=== PATIENT | female | born 1960 | race Caucasian/White ===

== ENCOUNTER 2017-05-05 11:02 | Outpatient (CLI) | payer OTHER | END 2017-05-05 11:03 | disposition home or self-care (01) | LOC: BICRAD 11:02 | PROVIDERS: ATTEND Physician Assistant | DX: M53.3 Sacrococcygeal disorders, not elsewhere classified (principal); M47.898 Other spondylosis, sacral and sacrococcygeal region | CPT/HCPCS: 72220 ==

== ENCOUNTER 2019-08-06 10:46 | Outpatient (CLI) | payer OTHER ==
--- NOTE | 2019-08-06 15:18 | PET ---
PET CT: 08/06/19 HISTORY: 59-year-old female with right hip pain and right hemipelvis soft tissue masses seen on MRI. TECHNIQUE: PET scan with CT attenuation correction is performed from the vertex through the feet following the intravenous administration of 11.3 millicuries of 15-fluorodeoxyglucose. COMPARISON: None. CORRELATION: MRI of the right hip dated 07/16/19 from [facility] in [place], [place]. FINDINGS: There is extensive hypermetabolic mediastinal lymphadenopathy with an SUV of 26. Hypermetabolic lymph nodes are seen in the abdomen with SUV of 26 in the aortocaval, 9.3 in the superior mesenteric and 1 2.5 in the right common iliac lymph nodes. The soft tissues masses noted in the right gluteal region on the MRI demonstrate hypermetabolic activ ity with a maximum SUV of 29 in the largest mass. There is focal increased uptake in the pericardium of the cardiac apex with an SUV of 4. Hypermetabolic bony lesions are seen in the right iliac bone with an SUV of 15.2, right fifth rib ant eriorly with SUV of 3.5 and right seventh rib anteriorly with an SUV of 9. There is a 15 mm left upper lobe ground glass/semisolid lung nodule without abnormal FDG localization (SVU 1.3). No hypermetabolic pulmonary nodules, liver, or adrenal lesions are seen. There is a 1.5 cm left adrenal nodule with CT attenuation value of less than 10 and no abnormal FDG l ocalization, consistent with a benign adenoma. The CT scan used for attenuation correction demonstrates no evidence of pleural effusions or ascites. IMPRESSION: 1. Findings are suspicious for extensive metastatic disease. 2. Indeterminate 15 mm left upper lobe nonhypermetabolic lung nodule. A follow-up CT scan should be performed in three months. POS: DIANA
== END 2019-08-06 10:47 | disposition home or self-care (01) ==
LOC: PET 10:46
PROVIDERS: ATTEND Physician Assistant
DX: M25.551 Pain in right hip (principal); R91.1 Solitary pulmonary nodule
CPT/HCPCS: 78816; A9552

== ENCOUNTER 2019-08-22 08:04 | Day surgery (SDC) | payer OTHER, SELFPAY ==
[2019-08-21 14:33] VITALS: BMI 32.2
[2019-08-22 08:25] LABS: PTT 43.9 sec (22.9-36.1); Prothrombin Time 13.6 sec (12.0-14.7)
[2019-08-22 08:30] LABS: Hemoglobin 10.9 g/dL (12.0-16.0); Mean Corpuscular HGB CONC 30.7 g/dL (32.0-36.0); Mean Corpuscular Volume 91.2 fL (78.0-98.0); Mean Platelet Volume 6.9 fL (7.4-10.4); Platelet Count 753 thou/uL (130-400); RBC Distribution Width 11.7 % (11.5-14.5); Red Blood Cell (RBC) Count 3.88 mill/uL (4.20-5.40); White Blood Cell (WBC) Count 33.7 thou/uL (4.8-10.8)
[2019-08-22 08:50] LABS: Band 21 % (5-11); Eosinophils 22 % (0-10); Lymphocytes 7 % (21-51); MDiff Complete? YES; Monocytes 10 % (0-10); Neutrophil 40 % (42-75); Platelet Morphology Comment Appears Increased; Polychromasia SLIGHT = 2-3 cells (100X) (0-2/hpf); Reflex for Review?? YES; Vacuoles MARKED
[2019-08-22 09:37] VITALS: BP 129/87; TEMP 97.6
--- NOTE | 2019-08-22 10:46 | CT ---
Exam: CT guided soft tissue biopsy HISTORY: Multiple masses. Uncertain primary tumor COMPARISON: None Correlation: [facility] 08/06/2019 Conscious sedation: 50 mcg of fentanyl intravenously and 1 mg of Versed intravenously FINDINGS: Successful CT-guided biopsy. Total of 2 18-gauge core biopsy samples were obtained. Lesiona l tissue is present TECHNIQUE: Consent obtained to perform a CT-guided biopsy of a soft tissue mass involving the right g luteal muscles. Patient was placed in a prone position on the CT gantry. Lesion was identified. Skin was prepped and draped in sterile fashion. 1% lidocaine was used for local anesthesia. Under CT guidance, a 17-gauge metallic trocar was advanced into the lesion. Through the trocar, total of 2 18-gauge core biopsy samples were obtained. Lesional tissue is present. Patient tolerated the procedu re well. No immediate or postprocedure complications. Hemostasis was achieved with manual pressure. IMPRESSION: Technically successful CT-guided biopsy. Final pathologic diagnosis us pending
== END 2019-08-22 12:10 | disposition home or self-care (01) ==
LOC: CT 08:04
PROVIDERS: ATTEND Internal Medicine Hematology & Oncology
PROC: 0KBN3ZX Excision of Right Hip Muscle, Percutaneous Approach, Diagnostic (ICD-10-PCS; principal; 2019-08-22)
DX: C79.89 Secondary malignant neoplasm of other specified sites (principal); C34.90 Malignant neoplasm of unspecified part of unspecified bronchus or lung; C79.51 Secondary malignant neoplasm of bone; F41.9 Anxiety disorder, unspecified; E78.5 Hyperlipidemia, unspecified; G89.29 Other chronic pain; M54.9 Dorsalgia, unspecified; M25.559 Pain in unspecified hip; Z96.641 Presence of right artificial hip joint; Z87.891 Personal history of nicotine dependence; Z79.891 Long term (current) use of opiate analgesic; Z79.899 Other long term (current) drug therapy; Z88.0 Allergy status to penicillin
CPT/HCPCS: 36415; 49180; 77012; 85025; 85060; 85610; 85730; 88305; 88333; 88341; 88342

== ENCOUNTER 2019-10-23 14:36 | Outpatient (CLI) | payer OTHER ==
--- NOTE | 2019-10-23 15:22 | RAD ---
PA AND LATERAL VIEWS CHEST: HISTORY: Pericardial effusion. COMPARISON: 09/25/2019. FINDINGS: There has been interval removal of the left-sided central venous catheter. The heart size is normal. The aorta is tortuous. The lungs are expanded without lobar consolidation, pneumothoraces, or pleu ral effusions. There are mild degenerative changes in the spine. IMPRESSION: No acute process. POS: OFF
== END 2019-10-23 14:37 | disposition home or self-care (01) ==
LOC: RAD 14:36
PROVIDERS: ATTEND Thoracic Surgery (Cardiothoracic Vascular Surgery)
DX: I31.3 Pericardial effusion (noninflammatory) (principal)
CPT/HCPCS: 71046

== ENCOUNTER 2019-10-25 09:42 | Outpatient (CLI) | payer OTHER ==
--- NOTE | 2019-10-25 11:47 | MRI ---
Exam: Brain MRI with and without contrast HISTORY: Known metastatic disease. Primary lung cancer with intracranial metastases. COMPARISON: 09/24/2019 FINDINGS: Gradient echo sequence: Small foci of hemosiderin deposition noted in the metastatic lesion in the po sterior right gunderson radiata/centrum [place] as well as the metastatic lesion in the left occipital lobe. Presence of hemosiderin likely representing combination of posttreatment change as we ll as spontaneous hemorrhage in a metastatic deposit. Calvarium: Appropriate T1 marrow signal intensity Midline brain parenchyma: Unremarkable Cerebrum:Redemonstration of T2 and FLAIR hyperintensity centered in the posterior right gunderson radiat a/centrum [place], left occipital lobe. There is progression of T2 and FLAIR hyperintensity involving the left frontal lobe as well as the right deep deep white matter lesion. All 3 foci have i ntrinsic T1 hyperintensity suggesting component of hemorrhage. There is associated edema in the intraparenchymal lesions. Ventricles: No evidence of hydrocephalus. Sinuses and mastoid air cells: Adequate aeration Diffusion: There is associated restricted diffusion with regards to the lesions in the left occipital lobe, left frontal lobe and right white matter. Postcontrast images:Redemonstration of 3 discrete enhancing lesions in the cerebrum. Enhancing lesion in the left occipital lobe currently measures 1.6 x 1.4 cm, previous measuring 1.7 x 1.5 cm. Enhancing focus in the right deep campa matter structures currently measuring 1.4 x 1.5 cm, previous m easuring 1.9 x 1.7 cm. Enhancing focus in the left frontal lobe measuring 1.2 x 1.0 cm, previous measuring 1.0 x 1.2 cm. No new areas of intra-axial enhancement. IMPRESSION: 1. Redemonstration of 3 separate intraparenchymal metastatic deposits without appreciable change allison ge. There is been a slight decrease in the overall size of the lesion involving the right deep campa matter structures. The degree of edema peripheral to this lesion has progressed. No significant midli ne shift.
== END 2019-10-25 09:43 | disposition home or self-care (01) ==
LOC: SCSMRI 09:42
PROVIDERS: ATTEND Internal Medicine Hematology & Oncology
DX: C34.90 Malignant neoplasm of unspecified part of unspecified bronchus or lung (principal); C79.51 Secondary malignant neoplasm of bone; C79.31 Secondary malignant neoplasm of brain; C78.1 Secondary malignant neoplasm of mediastinum; C77.2 Secondary and unspecified malignant neoplasm of intra-abdominal lymph nodes; C79.89 Secondary malignant neoplasm of other specified sites; R60.0 Localized edema
CPT/HCPCS: 70553

== ENCOUNTER 2019-11-07 13:17 | Outpatient (CLI) | payer OTHER | END 2019-11-07 13:18 | disposition home or self-care (01) | LOC: ULT 13:17 | PROVIDERS: ATTEND Internal Medicine Cardiovascular Disease | DX: I31.3 Pericardial effusion (noninflammatory) (principal); I80.8 Phlebitis and thrombophlebitis of other sites | CPT/HCPCS: 93306 ==

== ENCOUNTER 2019-11-25 12:39 | Day surgery (SDC) | payer OTHER ==
[~2019-11-25 12:39] MED LIST: Pembrolizumab 200 MG in Sodium Chloride 0.9% 250 ML 250 ML IV SCH
[2019-11-25] MEDS ORDERED: Sodium Chloride 0.9% 20 ML ONE (13:34)
[2019-11-25 14:22] VITALS: BP 147/70; TEMP 97.6
== END 2019-11-25 15:24 | disposition home or self-care (01) ==
LOC: ONC/OP 12:39
PROVIDERS: ATTEND Internal Medicine Hematology & Oncology
DX: Z51.12 Encounter for antineoplastic immunotherapy (principal); C34.90 Malignant neoplasm of unspecified part of unspecified bronchus or lung; C79.51 Secondary malignant neoplasm of bone; Z88.8 Allergy status to other drugs, medicaments and biological substances
CPT/HCPCS: 96413

== ENCOUNTER → 2019-12-16 | Day surgery (SDC) | payer OTHER | LOC: ONC/OP 14:37 | PROVIDERS: ATTEND Internal Medicine Hematology & Oncology | DX: Z51.12 Encounter for antineoplastic immunotherapy (principal); C34.90 Malignant neoplasm of unspecified part of unspecified bronchus or lung; C79.51 Secondary malignant neoplasm of bone; Z88.0 Allergy status to penicillin | CPT/HCPCS: 96413 ==

== ENCOUNTER 2019-12-25 06:48 | Outpatient (CLI) | payer OTHER ==
[2019-12-25 14:34] LABS: Anion Gap 15 mmol/L (10-20); BUN (Urea Nitrogen) 16 mg/dL (9.8-20.1); Calc. Creatinine Clearance 0 mL/min (70-130); Carbon Dioxide 28 mmol/L (23-31); Chloride 100 mmol/L (98-107); Estimated GFR-MDRD 77; Glucose 86 mg/dL (80-115); Potassium 5.2 mmol/L (3.5-5.1); Sodium 138 mmol/L (136-145)
[2019-12-26 14:43] LABS: SARS-CoV-2 MS2 Positive; SARS-CoV-2 by NAA DETECTED (NotDetected)
[2019-12-26 14:44] LABS: SARS-CoV-2 N Gene Positive; SARS-CoV-2 S Gene Positive; SARS-CoV-2 orf1ab Positive
== END 2019-12-25 06:49 | disposition home or self-care (01) ==
LOC: LABBT 06:48
PROVIDERS: ATTEND Surgery
DX: U07.1 COVID-19 (principal); Z01.812 Encounter for preprocedural laboratory examination; C34.90 Malignant neoplasm of unspecified part of unspecified bronchus or lung
CPT/HCPCS: 80048; 87635; U0003

== ENCOUNTER 2019-12-26 12:17 | Outpatient (CLI) | payer OTHER ==
--- NOTE | 2019-12-26 14:19 | MRI ---
MRI BRAIN WITH AND WITHOUT CONTRAST: DATE: 12/26/2019 HISTORY: 59-year-old female follow-up brain metastasis from right lung cancer. COMPARISON: 10/25/2019 TECHNIQUE: Multiplanar, multisequence MRI of the brain performed pre- and post-IV injection of gadolinium based contrast agent. FINDINGS: The round metastatic mass in the right parietal deep white matter previously measuring 1.7 x 1.7 x 1. 8 cm (reported as 1.4 x 1.5 cm) has decreased in size and currently measures 1.1 x 1.3 x 1.2 cm. The left occipital pole round enhancing metastatic mass previously measuring approximately 1.7 x 1.4 x 1.6 cm, currently measurers 0.9 x 0.8 x 0.8 cm. The left frontal lobe enhancing intra-axial mass previously measuring 1.2 x 1 x 1.1 cm, currently doug sures 0.6 x 0.8 x 0.6 cm. The vasogenic edema surrounding all of them have significantly decreased. There is a small thin halo around the right parietal deep white matter mass, but no vasogenic edema i s identified surrounding the other 2 lesions. There is hemosiderin stain involving the right parietal and left occipital masses The right parietal and left occipital lesions have central components with restricted diffusion sugge sting high nucleus to cytoplasm ratios as seen in small round blue cell tumors such as small cell carcinoma. There are no new metastatic lesions. Ventricles are normal in size and configuration. No mass effect, midline shift, or extra-axial fluid collection. IMPRESSION: Evidence for response to chemotherapy: interval shrinkage, and interval reduction of surrounding vaso genic edema, involving the 3 cerebral metastatic lesions.
--- NOTE | 2019-12-26 15:37 | CT ---
CT of the chest, abdomen, and pelvis: 12/26/2019 COMPARISON: Chest CT 08/22/2019, CT of abdomen and pelvis 09/16/2019, and PET scan 08/06/2019 HISTORY: Lung cancer with osseous and intracranial metastatic disease TECHNIQUE: Axial CT imaging at 5 mm intervals from the thoracic inlet through the pubic symphysis wit h IV and oral contrast. Coronal and sagittal reformatted imaging obtained FINDINGS: No lymphadenopathy in the axillary regions. There is a mass anterior to the trachea at the axial level of the thoracic inlet measuring 2 cm in AP dimension which abuts the inferior aspect of the thyroid gland may represent a thyroid nodule or a abnormal metastatic lymph node. There is lymphadenopathy within the mediastinum including a 1.7 cm ly mph node anterior to the superior vena cava, new when compared to the prior PET scan. There is necrotic adenopathy anterior to the ruben measuring 2.1 cm in AP dimension, increased in size from [facility] 09/18/2019 CT and increased from the prior PET scan at which time it measured 1.2 cm. Subcarinal tatiana mass measures 1.9 cm in AP dimension, similar when compared to prior chest CT on 09/18/2019 and enlarged from prior PET at which time it measured 1.2 cm. Enlarged low-density necrotic lymph nodes are seen within the prevascular space measuring up to 9 mm, measuring 8 mm on prior PET. Stable small AP window lymph nodes are noted. No hilar adenopathy is apparent on either side. There is no pneumothorax seen on either side. There is a nodule in the left upper lobe measuring 9 mm on axial image 12, slightly larger than on th e prior examination, measuring 7 mm on prior PET scan. There is an irregular masslike opacity within the left upper lobe posteriorly on image 20 measuring 1.8 cm in transverse dimension, not sign ificantly changed when compared to the prior PET scan. Stable linear density in the inferior medial right middle lobe suggests scar and/or volume loss. No discrete new pulmonary nodules are noted on ei ther side. Review of the osseous structures of the chest demonstrate a punctate sclerotic focus within the midpo rtion of the sternum, not discretely visualized on the prior PET scan. No discrete rib lesion noted on the left. There is a sclerotic focus involving the anterior aspect of the left fifth rib and the l ateral aspect of the left seventh rib with associated healed fractures which are new when compared to the prior PET scan and are suspicious for healed pathologic fractures on the basis of osseous meta static disease. No free intraperitoneal air or fluid is seen. Liver, gallbladder, spleen, pancreas, and kidneys demonstrate no acute findings. There is an adrenal mass on the left measuring 2.5 cm, stable when compared to the prior PET scan. There is a stable small adrenal nodule on the right measuring 1.1 cm, probably stable when compared to prior imaging. There is a hip arthroplasty on the right. No evidence for bowel inflammatory change or bowel obstruction. The vascular structures of the abdomen/pelvis demonstrate scattered areas of atherosclerotic calcific ation involving the abdominal aorta and its branches. No enlarged retroperitoneal or pelvic lymph nodes are seen. There is a low-density enlarged node on axial image 82 measuring 1.2 cm along the course of the commo n iliac vasculature on the right, similar when compared to the 08/06/2019 PET scan. There are 2 enlarged lymph nodes posterior to the external iliac vasculature on the right measuring up to 1.4 cm in short axis dimension, also similar when compared to prior PET scan. Review of the osseous structures of the abdomen/pelvis demonstrate a sclerotic lesion within the left femoral head suggesting stable osseous metastatic disease. There is also a subtle sclerotic focus within the ischium on the left which actually appears more conspicuous than on prior PET scan. No discrete sacral lesion is seen. Enlarged lymph nodes are seen anterior to the gluteal musculature on axial image 98 measuring up to 1 cm, similar when compared to prior imaging. There is a vague low-density mass within the gluteal musculature laterally on the left measuring up to 2.3 cm suggesti ng possible intramuscular metastatic lesion. Subtle sclerotic focus noted within the anterior aspect of the right iliac wing, more conspicuous gregoria n on the prior examination, suspicious for possible osseous metastatic focus. Punctate sclerotic focus within the posterior aspect of the iliac bone on the left on image 84 which appears new as well . IMPRESSION: Worsening metastatic adenopathy within the mediastinum. Findings suggesting slight interv al worsening of metastatic osseous lesions as detailed above. Stable pulmonary parenchymal lesions within the left upper lobe. Relatively stable metastatic adenopathy within the pelvis. Gluteal abnormality suggesting a combinati on of intramuscular lesions and adjacent lymph nodes, presumably on the basis of metastatic disease. Intramuscular abscess in the proper clinical setting cannot be excluded.
== END 2019-12-26 12:18 | disposition home or self-care (01) ==
LOC: SCSMRI 12:17
PROVIDERS: ATTEND Internal Medicine Hematology & Oncology
DX: C34.90 Malignant neoplasm of unspecified part of unspecified bronchus or lung (principal); C79.51 Secondary malignant neoplasm of bone; C79.31 Secondary malignant neoplasm of brain; C79.89 Secondary malignant neoplasm of other specified sites; J98.4 Other disorders of lung; M60.08 Infective myositis, other site; R60.0 Localized edema
CPT/HCPCS: 70553; 71260; 74177

== ENCOUNTER 2020-01-13 13:00 | Day surgery (SDC) | payer OTHER ==
[~2020-01-13 13:00] MED LIST changes: -Pembrolizumab 200 MG in Sodium Chloride 0.9% 250 ML 250 ML IV SCH; +Pembrolizumab 200 MG in Sodium Chloride 0.9% 250 ML 250 ML IVPB SCH; +Zoledronic Acid 4 MG in Sodium Chloride 0.9% 100 ML IVPB SCH
== END 2020-01-13 16:10 | disposition home or self-care (01) ==
LOC: ONC/OP 13:00
PROVIDERS: ATTEND Internal Medicine Hematology & Oncology
DX: Z51.12 Encounter for antineoplastic immunotherapy (principal); C79.51 Secondary malignant neoplasm of bone; C34.90 Malignant neoplasm of unspecified part of unspecified bronchus or lung; Z88.0 Allergy status to penicillin
CPT/HCPCS: 96367; 96413; J3489; J3490

== ENCOUNTER 2020-01-27 06:47 | Outpatient (CLI) | payer OTHER ==
[2020-01-27 16:37] LABS: Hemoglobin 12.4 g/dL (12.0-16.0); Mean Corpuscular HGB CONC 30.2 G/DL (32.0-36.0); Mean Corpuscular Hemoglobin 28.2 PG (27.0-33.0); Mean Corpuscular Volume 93.2 fl (80.0-100.0); Mean Platelet Volume 9.9 fl (7.4-10.4); Platelet Count 411 10x3/uL (130-400); RBC Distribution Width 17.2 % (11.5-14.5); White Blood Cell (WBC) Count 6.7 10x3/uL (4.5-11.0)
[2020-01-27 16:52] LABS: Anion Gap 14 mmol/L (10-20); BUN (Urea Nitrogen) 13 mg/dL (9.8-20.1); Calc. Creatinine Clearance 0 mL/min (70-130); Calcium 9.1 mg/dL (7.8-10.44); Carbon Dioxide 30 mmol/L (23-31); Chloride 101 mmol/L (98-107); Glucose 77 mg/dL (80-115); Potassium 4.9 mmol/L (3.5-5.1); Sodium 140 mmol/L (136-145)
[2020-01-28 02:12] LABS: SARS-CoV-2 MS2 Positive; SARS-CoV-2 N Gene Negative; SARS-CoV-2 S Gene Negative; SARS-CoV-2 by NAA Not Detected (NotDetected); SARS-CoV-2 orf1ab Negative
== END 2020-01-27 06:48 | disposition home or self-care (01) ==
LOC: LABBT 06:47
PROVIDERS: ATTEND Surgery
DX: Z01.812 Encounter for preprocedural laboratory examination (principal); Z20.828 Contact with and (suspected) exposure to other viral communicable diseases; C34.90 Malignant neoplasm of unspecified part of unspecified bronchus or lung
CPT/HCPCS: 80048; 85027; 87635; U0003

== ENCOUNTER 2020-01-30 11:05 | Day surgery (SDC) | payer OTHER ==
[2020-01-29 09:34] VITALS: BMI 31.8
[2020-01-30] MEDS ORDERED: Lidocaine 1% w/Epinephrine 1:100K 20 ML VIAL ONE (12:07)
[2020-01-30] MEDS ORDERED: Bupivacaine 0.25% HCL 30 ML VIAL ONE (12:07)
[2020-01-30] MEDS ORDERED: Fentanyl 100 MCG/2 ML VIAL ONE (12:11)
[2020-01-30] MEDS ORDERED: PROPOFOL 40 ML ONE (12:11)
[2020-01-30] MEDS ORDERED: Levofloxacin 500 mg/D5W 100 ml Premix Bag ONE (12:21)
--- NOTE | 2020-01-30 14:30 | RAD ---
CHEST 1 VIEW: History Post MediPort. FINDINGS: Heart size is enlarged. Atherosclerotic changes of the aorta. Right-sided MediPort catheter is seen . Catheter tip overlies the superior vena cava. No pneumothorax identified. IMPRESSION: Post MediPort placement. No signs of pneumothorax. POS: IMER
--- NOTE | 2020-01-31 14:54 | OP ---
DATE OF PROCEDURE: 01/30/2020 PREOPERATIVE DIAGNOSIS: Lung cancer. POSTOPERATIVE DIAGNOSIS: Lung cancer. PROCEDURE PERFORMED: Tunneled central line with subcutaneous port (MediPort, CT injectable). ANESTHESIA: TIVA, local. ESTIMATED BLOOD LOSS: Minimal. COMPLICATIONS: None. SPECIMEN: None. FINDINGS: The tip of the catheter was at the atriocaval junction. DESCRIPTION OF PROCEDURE: The patient was taken to the operating room and laid supine on the operating room table. After sedation was obtained, bilateral neck and chest were prepped and draped in a sterile fashion. Local anesthetic was infiltrated over the right internal jugular vein. Internal jugular vein was cannulated using a 22-gauge Finder needle followed by a Seldinger needle. Wire was passed into the superior vena cava under fluoro guidance. A small robbi was made at the wire entrance site. A separate 3 cm incision was made in the right upper chest. Subcutaneous pocket was made below the lower incision. Tubing for the MediPort tunneled from the inferior to the superior incision and suture sheath was placed over the wire into the superior vena cava under fluoro guidance. The dilator and wire were removed. The end of the catheter threaded into the sheath. The sheath was peeled away. The tip of the catheter was at the atriocaval junction. MediPort tubing was cut to fit the MediPort at the lower incision, connected to the MediPort. The MediPort sewn to the chest wall in the subcutaneous pocket using Prolene. MediPort flushes and draws blood without difficulties, flushed with a heparin flush. The wound was irrigated and closing using 3-0 Vicryl, 4-0 Monocryl, and Dermabond. The patient was sent to Recovery in stable condition. All instrument counts, needle counts, and lap counts were correct. Job ID: [id number]
== END 2020-01-30 14:40 | disposition home or self-care (01) ==
LOC: SDC 11:05
PROVIDERS: ATTEND Surgery
PROC: 0JH63WZ Insertion of Totally Implantable Vascular Access Device into Chest Subcutaneous Tissue and Fascia, Percutaneous Approach (ICD-10-PCS; principal; 2020-01-30)
PROC: 02HV33Z Insertion of Infusion Device into Superior Vena Cava, Percutaneous Approach (ICD-10-PCS; principal; 2020-01-30)
DX: C34.90 Malignant neoplasm of unspecified part of unspecified bronchus or lung (principal); C79.9 Secondary malignant neoplasm of unspecified site; M19.90 Unspecified osteoarthritis, unspecified site; F41.9 Anxiety disorder, unspecified; Z87.891 Personal history of nicotine dependence; Z79.899 Other long term (current) drug therapy; Z88.0 Allergy status to penicillin; Z88.8 Allergy status to other drugs, medicaments and biological substances
CPT/HCPCS: 71045; C1788; J0690; J1642; J1956; J2704; J3010; S0020

== ENCOUNTER 2020-02-03 13:27 | Day surgery (SDC) | payer OTHER ==
[~2020-02-03 13:27] MED LIST changes: +Pembrolizumab 200 MG in Sodium Chloride 0.9% 250 ML 250 ML IV SCH; -Pembrolizumab 200 MG in Sodium Chloride 0.9% 250 ML 250 ML IVPB SCH; -Zoledronic Acid 4 MG in Sodium Chloride 0.9% 100 ML IVPB SCH
[2020-02-03 13:49] VITALS: BP 162/75; TEMP 98.5
[2020-02-03] MEDS ORDERED: Sodium Chloride 0.9% 20 ML ONE (14:03)
== END 2020-02-03 14:42 | disposition home or self-care (01) ==
LOC: ONC/OP 13:27
PROVIDERS: ATTEND Internal Medicine Hematology & Oncology
DX: Z51.12 Encounter for antineoplastic immunotherapy (principal); C34.90 Malignant neoplasm of unspecified part of unspecified bronchus or lung; C79.51 Secondary malignant neoplasm of bone; Z88.0 Allergy status to penicillin; Z88.8 Allergy status to other drugs, medicaments and biological substances
CPT/HCPCS: 96413; J1642

== ENCOUNTER 2020-02-24 13:28 | Day surgery (SDC) | payer OTHER ==
[2020-02-24 13:39] VITALS: BP 146/81; TEMP 98.2
[2020-02-24] MEDS ORDERED: Sodium Chloride 0.9% 20 ML ONE (13:47)
== END 2020-02-24 17:24 | disposition home or self-care (01) ==
LOC: ONC/OP 13:28
PROVIDERS: ATTEND Internal Medicine Hematology & Oncology
DX: Z51.12 Encounter for antineoplastic immunotherapy (principal); C34.90 Malignant neoplasm of unspecified part of unspecified bronchus or lung; C79.51 Secondary malignant neoplasm of bone; Z88.0 Allergy status to penicillin; Z88.8 Allergy status to other drugs, medicaments and biological substances
CPT/HCPCS: 96413; J1642

== ENCOUNTER 2020-03-18 14:39 | Day surgery (SDC) | payer OTHER ==
[2020-03-18 15:08] VITALS: BP 136/65; TEMP 98.6
== END 2020-03-18 16:14 | disposition home or self-care (01) ==
LOC: ONC/OP 14:39
PROVIDERS: ATTEND Internal Medicine Hematology & Oncology
DX: Z51.12 Encounter for antineoplastic immunotherapy (principal); C34.90 Malignant neoplasm of unspecified part of unspecified bronchus or lung; C79.51 Secondary malignant neoplasm of bone; Z88.0 Allergy status to penicillin; Z88.8 Allergy status to other drugs, medicaments and biological substances
CPT/HCPCS: 96413

== ENCOUNTER 2020-04-27 12:27 | Day surgery (SDC) | payer OTHER ==
[~2020-04-27 12:27] MED LIST changes: +Zoledronic Acid 4 MG in Sodium Chloride 0.9% 100 ML IVPB SCH
[2020-04-27 12:52] VITALS: BP 137/81; TEMP 98.4
== END 2020-04-27 16:35 | disposition home or self-care (01) ==
LOC: ONC/OP 12:27
PROVIDERS: ATTEND Internal Medicine Hematology & Oncology
DX: Z51.12 Encounter for antineoplastic immunotherapy (principal); C34.90 Malignant neoplasm of unspecified part of unspecified bronchus or lung; C79.51 Secondary malignant neoplasm of bone
CPT/HCPCS: 96367; 96413; J3489; J3490; J7050; J9271

== ENCOUNTER 2020-05-19 13:40 | Day surgery (SDC) | payer OTHER, SELFPAY ==
[2020-05-19] MEDS ORDERED: Sodium Chloride 0.9% 20 ML ONE (13:43)
[2020-05-19 14:12] VITALS: BP 146/71
[2020-05-19] MEDS ORDERED: Pembrolizumab 200 MG in Sodium Chloride 0.9% 250 ML 250 ML IV SCH (14:15)
== END 2020-05-19 15:02 | disposition home or self-care (01) ==
LOC: ONC/OP 13:40
PROVIDERS: ATTEND Internal Medicine Hematology & Oncology
DX: Z51.12 Encounter for antineoplastic immunotherapy (principal); C34.90 Malignant neoplasm of unspecified part of unspecified bronchus or lung; C79.51 Secondary malignant neoplasm of bone; Z88.0 Allergy status to penicillin
CPT/HCPCS: 96413; J1642; J7050; J9271

== ENCOUNTER 2020-05-22 11:48 | Outpatient (CLI) | payer OTHER, SELFPAY ==
[2020-05-22 16:21] LABS: Anion Gap 14 mmol/L (10-20); BUN (Urea Nitrogen) 15 mg/dL (9.8-20.1); Calc. Creatinine Clearance 0 mL/min (70-130); Calcium 8.5 mg/dL (7.8-10.44); Carbon Dioxide 29 mmol/L (23-31); Chloride 102 mmol/L (98-107); Glucose 95 mg/dL (80-115); Sodium 140 mmol/L (136-145)
[2020-05-22 16:46] LABS: #Basophils 0.1 10x3/uL (0.0-0.2); #Eosinphils 0.4 10x3/uL (0.0-0.5); #Monocytes 0.8 10x3/uL (0.0-1.1); #Neutrophils 5.3 10x3/uL (1.5-8.4); %Basophils 0.8 % (0.0-2.0); %Eosinophils 4.4 % (0.0-6.0); %Lymphocytes 17.6 % (18.0-47.0); %Monocytes 9.8 % (0.0-10.0); Hemoglobin 13.4 g/dL (12.0-15.5); Mean Corpuscular HGB CONC 30.1 g/dL (32.0-36.0); Mean Corpuscular Hemoglobin 29.3 pg (27.0-33.0); Mean Corpuscular Volume 97.2 fl (81.6-98.3); Mean Platelet Volume 10.5 fl (7.4-10.4); Platelet Count 367 10x3/uL (150-450); RBC Distribution Width 13.7 % (11.5-14.5); Red Blood Cell (RBC) Count 4.58 10x6/uL (3.90-5.03)
[2020-05-23 01:24] LABS: SARS-CoV-2 PCR by NAA Not Detected (NotDetected)
== END 2020-05-22 11:49 | disposition home or self-care (01) ==
LOC: LABBT 11:48
PROVIDERS: ATTEND Specialist
DX: Z01.818 Encounter for other preprocedural examination (principal); C50.919 Malignant neoplasm of unspecified site of unspecified female breast; R10.84 Generalized abdominal pain; Z98.890 Other specified postprocedural states; K43.2 Incisional hernia without obstruction or gangrene; Z20.822 Contact with and (suspected) exposure to COVID-19
CPT/HCPCS: 80048; 85025; 87635; U0003; U0005

== ENCOUNTER 2020-05-27 11:52 | Day surgery (SDC) | payer OTHER, SELFPAY ==
[2020-05-25 15:40] VITALS: BMI 34.5
[2020-05-27] MEDS ORDERED: Ketorolac Tromethamine 30 MG/ML VIAL ONE (12:07)
[2020-05-27] MEDS ORDERED: Levofloxacin 500 mg/D5W 100 ml Premix Bag ONE (12:07)
[2020-05-27] MEDS ORDERED: Acetaminophen 500 MG TAB ONE (12:07)
[2020-05-27] MEDS ORDERED: Gabapentin 300 MG CAP ONE (12:07)
[2020-05-27] MEDS ORDERED: Scopolamine 1.5 mg/72 hour Patch ONE ×2 (13:22→17:27)
[2020-05-27] MEDS ORDERED: Bupivacaine 0.25% HCL 30 ML VIAL ONE (16:43)
[2020-05-27] MEDS ORDERED: Lidocaine 1% w/Epinephrine 1:100K 20 ML VIAL ONE (16:43)
[2020-05-27] MEDS ORDERED: Fentanyl 100 MCG/2 ML VIAL ONE ×4 (17:05→20:52)
[2020-05-27] MEDS ORDERED: Ondansetron PF 4 MG/2 ML Vial ONE ×2 (17:18→20:52)
[2020-05-27] MEDS ORDERED: Labetalol HCl 100 MG/20 ML VIAL ONE (17:18)
[2020-05-27] MEDS ORDERED: Lidocaine 1% PF 5 ML VIAL ONE (17:18)
[2020-05-27] MEDS ORDERED: Rocuronium Bromide 10 MG/ML (10ML VIAL) ONE (17:18)
[2020-05-27] MEDS ORDERED: Dexamethasone 20 MG/5 ML VIAL ONE (17:18)
[2020-05-27] MEDS ORDERED: PROPOFOL 200 MG/20 ML VIAL ONE (17:18)
[2020-05-27] MEDS ORDERED: Glycopyrrolate 0.2 MG/ML 5 ML SYRINGE ONE (17:18)
[2020-05-27] MEDS ORDERED: SUGAMMADEX SODIUM 200 MG/2 ML VIAL ONE (19:44)
[2020-05-27] MEDS ORDERED: HYDROcodone/Acetaminophen 5/325 mg Tablet ONE (20:38)
== END 2020-05-27 21:22 | disposition home or self-care (01) ==
LOC: SDC 11:52
PROVIDERS: ATTEND Specialist
PROC: 0WUF4JZ Supplement Abdominal Wall with Synthetic Substitute, Percutaneous Endoscopic Approach (ICD-10-PCS; principal; 2020-05-27)
DX: K43.2 Incisional hernia without obstruction or gangrene (principal); M19.90 Unspecified osteoarthritis, unspecified site; E78.00 Pure hypercholesterolemia, unspecified; G89.29 Other chronic pain; I10 Essential (primary) hypertension; F41.9 Anxiety disorder, unspecified; C50.919 Malignant neoplasm of unspecified site of unspecified female breast; Z79.899 Other long term (current) drug therapy; Z87.891 Personal history of nicotine dependence; Z88.0 Allergy status to penicillin; Z88.8 Allergy status to other drugs, medicaments and biological substances
CPT/HCPCS: C1781; J1100; J1885; J1956; J2405; J2704; J3010; S0020

== ENCOUNTER 2020-06-09 13:10 | Day surgery (SDC) | payer OTHER ==
[~2020-06-09 13:10] MED LIST changes: -Zoledronic Acid 4 MG in Sodium Chloride 0.9% 100 ML IVPB SCH
[2020-06-09 13:36] VITALS: BP 161/70; TEMP 98.8
== END 2020-06-09 15:03 | disposition home or self-care (01) ==
LOC: ONC/OP 13:10
PROVIDERS: ATTEND Internal Medicine Hematology & Oncology
DX: Z51.12 Encounter for antineoplastic immunotherapy (principal); C34.90 Malignant neoplasm of unspecified part of unspecified bronchus or lung; C79.51 Secondary malignant neoplasm of bone; Z88.0 Allergy status to penicillin; Z88.8 Allergy status to other drugs, medicaments and biological substances
CPT/HCPCS: 96413

== ENCOUNTER 2020-06-30 13:32 | Day surgery (SDC) | payer OTHER ==
[2020-06-30] MEDS ORDERED: Sodium Chloride 0.9% 20 ML ONE (13:36)
== END 2020-06-30 15:15 | disposition home or self-care (01) ==
LOC: ONC/OP 13:32
PROVIDERS: ATTEND Internal Medicine Hematology & Oncology
DX: Z51.12 Encounter for antineoplastic immunotherapy (principal); C34.90 Malignant neoplasm of unspecified part of unspecified bronchus or lung; C79.51 Secondary malignant neoplasm of bone; Z88.0 Allergy status to penicillin; Z88.8 Allergy status to other drugs, medicaments and biological substances
CPT/HCPCS: 96413; J1642

== ENCOUNTER 2020-07-29 13:55 | Day surgery (SDC) | payer OTHER ==
[~2020-07-29 13:55] MED LIST changes: -Pembrolizumab 200 MG in Sodium Chloride 0.9% 250 ML 250 ML IV SCH; +Pembrolizumab 200 MG in Sodium Chloride 0.9% 250 ML 250 ML IVPB SCH; +Zoledronic Acid 4 MG in Sodium Chloride 0.9% 100 ML IVPB SCH
[2020-07-29] MEDS ORDERED: Sodium Chloride 0.9% 20 ML ONE (14:55)
[2020-07-29 14:57] VITALS: BP 139/63; TEMP 97.9
== END 2020-07-29 15:48 | disposition home or self-care (01) ==
LOC: ONC/OP 13:55
PROVIDERS: ATTEND Internal Medicine Hematology & Oncology
DX: Z51.12 Encounter for antineoplastic immunotherapy (principal); C34.90 Malignant neoplasm of unspecified part of unspecified bronchus or lung; C79.51 Secondary malignant neoplasm of bone; Z88.0 Allergy status to penicillin; Z88.8 Allergy status to other drugs, medicaments and biological substances
CPT/HCPCS: 96372; 96413; J3489; J3490

== ENCOUNTER 2020-11-10 13:43 | Day surgery (SDC) | payer OTHER ==
[2020-11-10 14:22] VITALS: BP 159/70; TEMP 98.8
== END 2020-11-10 15:04 | disposition home or self-care (01) ==
LOC: ONC/OP 13:43
PROVIDERS: ATTEND Internal Medicine Hematology & Oncology
DX: Z51.12 Encounter for antineoplastic immunotherapy (principal); C34.90 Malignant neoplasm of unspecified part of unspecified bronchus or lung; C79.51 Secondary malignant neoplasm of bone; Z88.0 Allergy status to penicillin; Z88.8 Allergy status to other drugs, medicaments and biological substances
CPT/HCPCS: 96367; 96413; J3489; J3490

== ENCOUNTER 2020-12-01 13:47 | Day surgery (SDC) | payer OTHER ==
[~2020-12-01 13:47] MED LIST changes: -Zoledronic Acid 4 MG in Sodium Chloride 0.9% 100 ML IVPB SCH
[2020-12-01 14:06] VITALS: BP 143/65; TEMP 98.1
== END 2020-12-01 15:03 | disposition home or self-care (01) ==
LOC: ONC/OP 13:47
PROVIDERS: ATTEND Internal Medicine Hematology & Oncology
DX: Z51.12 Encounter for antineoplastic immunotherapy (principal); C34.90 Malignant neoplasm of unspecified part of unspecified bronchus or lung; C79.51 Secondary malignant neoplasm of bone; E78.5 Hyperlipidemia, unspecified; Z88.0 Allergy status to penicillin; Z88.8 Allergy status to other drugs, medicaments and biological substances; Z98.890 Other specified postprocedural states; Z96.641 Presence of right artificial hip joint; Z87.891 Personal history of nicotine dependence; Z79.899 Other long term (current) drug therapy
CPT/HCPCS: 96413

== ENCOUNTER 2021-02-02 13:54 | Day surgery (SDC) | payer OTHER ==
[2021-02-02] MEDS ORDERED: Zoledronic Acid 4 MG in Sodium Chloride 0.9% 100 ML IVPB SCH (14:15)
[2021-02-02] MEDS ORDERED: Sodium Chloride 0.9% 10 ML ONE (14:52)
[2021-02-02 15:02] VITALS: TEMP 98.2
== END 2021-02-02 15:03 | disposition home or self-care (01) ==
LOC: ONC/OP 13:54
PROVIDERS: ATTEND Internal Medicine Hematology & Oncology
DX: C34.90 Malignant neoplasm of unspecified part of unspecified bronchus or lung (principal); C79.51 Secondary malignant neoplasm of bone; Z79.83 Long term (current) use of bisphosphonates; Z88.0 Allergy status to penicillin; Z88.8 Allergy status to other drugs, medicaments and biological substances
CPT/HCPCS: 96365; J1642; J3489; J3490

== ENCOUNTER 2021-02-13 16:30 | Inpatient (IN) | payer OTHER ==
[2021-02-13] MEDS ORDERED: Ondansetron PF 4 MG/2 ML Vial IVP PRN (20:20)
[2021-02-13] MEDS ORDERED: Ondansetron ODT 4 MG TAB PO PRN (20:20)
[2021-02-13] MEDS ORDERED: Acetaminophen 650 MG Suppository PR PRN (20:20)
[2021-02-13] MEDS ORDERED: Docusate 100 MG CAP PO PRN (20:39)
[2021-02-13] MEDS ORDERED: HYDROcodone/Acetaminophen 10/325 mg Tablet PO PRN (20:39)
[2021-02-13] MEDS ORDERED: Melatonin 3 MG TAB PO PRN (20:40)
[2021-02-13] MEDS ORDERED: ALPRAZolam 0.5 MG TAB PO SCH (21:00)
[2021-02-13] MEDS: hydrOXYzine 25 MG TAB PO SCH (22:26)
[2021-02-13 23:14] VITALS: BMI 37.0
[2021-02-14 08:38] LABS: #Basophils 0.1 thou/uL (0.0-0.2); #Eosinphils 0.1 thou/uL (0.0-0.7); #Lymphocytes 0.8 thou/uL (1.20-3.40); #Monocytes 0.8 thou/uL (0.11-0.59); #Neutrophils 7.8 thou/uL (1.40-6.50); %Basophils 0.9 % (0.0-1.0); %Eosinophils 1.3 % (0.0-10.0); %Lymphocytes 8.7 % (21.0-51.0); %Monocytes 7.9 % (0.0-10.0); %Neutrophils 81.3 % (42.0-75.0); Hemoglobin 13.4 g/dL (12.0-16.0); Mean Corpuscular HGB CONC 33.5 g/dL (32.0-36.0); Mean Corpuscular Volume 98.8 fL (78.0-98.0); Mean Platelet Volume 6.8 fL (7.4-10.4); Platelet Count 262 thou/uL (130-400); RBC Distribution Width 15.8 % (11.5-14.5); Red Blood Cell (RBC) Count 4.06 mill/uL (4.20-5.40); White Blood Cell (WBC) Count 9.6 thou/uL (4.8-10.8)
[2021-02-14 08:58] LABS: Anion Gap 11 mmol/L (10-20); BUN (Urea Nitrogen) 18 mg/dL (9.8-20.1); Calc. Creatinine Clearance 117 mL/min (70-130); Calcium 9.1 mg/dL (7.8-10.44); Carbon Dioxide 32 mmol/L (23-31); Chloride 100 mmol/L (98-107); Glucose 116 mg/dL (80-115); Potassium 4.1 mmol/L (3.5-5.1); Sodium 139 mmol/L (136-145)
[2021-02-14] MEDS ORDERED: Rivaroxaban 15 MG TAB PO SCH (09:22)
[2021-02-14] MEDS: Dexamethasone 4 MG TAB PO SCH (09:43)
[2021-02-14] MEDS: HYDROcodone/Acetaminophen 10/325 mg Tablet PO SCH ×3 (09:44→22:07)
[2021-02-14] MEDS: Rivaroxaban 15 MG TAB PO SCH ×2 (10:03→20:50)
[2021-02-14] MEDS ORDERED: Polyethylene Glycol 3350 17 GM Packet PO SCH (10:15)
[2021-02-14] MEDS ORDERED: HYDROcodone/Acetaminophen 10/325 mg Tablet PO SCH ×2 (16:00→22:00)
[2021-02-14] MEDS: ALPRAZolam 0.5 MG TAB PO PRN (17:24)
[2021-02-14] MEDS: Docusate 100 MG CAP PO SCH (20:50)
[2021-02-14] MEDS: hydrOXYzine 25 MG TAB PO SCH (20:50)
[2021-02-15 06:37] LABS: #Eosinphils 0.1 thou/uL (0.0-0.7); #Lymphocytes 0.7 thou/uL (1.20-3.40); #Monocytes 0.6 thou/uL (0.11-0.59); #Neutrophils 6.2 thou/uL (1.40-6.50); %Eosinophils 0.9 % (0.0-10.0); %Lymphocytes 9.7 % (21.0-51.0); %Monocytes 7.5 % (0.0-10.0); %Neutrophils 81.9 % (42.0-75.0); Hemoglobin 12.9 g/dL (12.0-16.0); Mean Corpuscular HGB CONC 32.1 g/dL (32.0-36.0); Mean Corpuscular Hemoglobin 31.8 pg (27.0-31.0); Mean Corpuscular Volume 99.1 fL (78.0-98.0); Mean Platelet Volume 6.9 fL (7.4-10.4); Platelet Count 269 thou/uL (130-400); RBC Distribution Width 15.7 % (11.5-14.5); Red Blood Cell (RBC) Count 4.07 mill/uL (4.20-5.40); White Blood Cell (WBC) Count 7.6 thou/uL (4.8-10.8)
[2021-02-15 06:59] LABS: Anion Gap 7 mmol/L (10-20); BUN (Urea Nitrogen) 15 mg/dL (9.8-20.1); Calc. Creatinine Clearance 128 mL/min (70-130); Calcium 8.7 mg/dL (7.8-10.44); Carbon Dioxide 36 mmol/L (23-31); Chloride 100 mmol/L (98-107); Glucose 122 mg/dL (80-115); Potassium 4.3 mmol/L (3.5-5.1); Sodium 139 mmol/L (136-145)
[2021-02-15] MEDS: Dexamethasone 4 MG TAB PO SCH (09:18)
[2021-02-15] MEDS: HYDROcodone/Acetaminophen 10/325 mg Tablet PO SCH ×3 (09:19→21:27)
[2021-02-15] MEDS: Rivaroxaban 15 MG TAB PO SCH ×2 (09:20→21:27)
[2021-02-15] MEDS: ALPRAZolam 0.5 MG TAB PO PRN ×3 (11:07→21:28)
[2021-02-15] MEDS: Docusate 100 MG CAP PO SCH ×2 (12:03→21:26)
[2021-02-15] MEDS: Polyethylene Glycol 3350 17 GM Packet PO SCH (12:03)
[2021-02-15] MEDS: Acyclovir 800 mg Tablet PO SCH ×3 (15:44→23:48)
[2021-02-15] MEDS: hydrOXYzine 25 MG TAB PO SCH (21:28)
[2021-02-16] MEDS: HYDROcodone/Acetaminophen 10/325 mg Tablet PO SCH ×3 (08:35→21:34)
[2021-02-16] MEDS: Dexamethasone 4 MG TAB PO SCH (08:37)
[2021-02-16] MEDS: Rivaroxaban 15 MG TAB PO SCH ×2 (08:37→21:35)
[2021-02-16] MEDS: Acyclovir 800 mg Tablet PO SCH ×4 (08:38→21:35)
[2021-02-16] MEDS: Polyethylene Glycol 3350 17 GM Packet PO SCH (11:54)
[2021-02-16] MEDS: Docusate 100 MG CAP PO SCH ×2 (11:54→21:36)
[2021-02-16] MEDS: ALPRAZolam 0.5 MG TAB PO PRN ×2 (13:55→19:55)
[2021-02-16] MEDS: hydrOXYzine 25 MG TAB PO SCH (21:35)
[2021-02-17] MEDS: Acyclovir 800 mg Tablet PO SCH ×5 (00:55→21:55)
[2021-02-17] MEDS: ALPRAZolam 0.5 MG TAB PO PRN ×2 (05:44→13:50)
[2021-02-17] MEDS: HYDROcodone/Acetaminophen 10/325 mg Tablet PO SCH ×3 (08:48→21:55)
[2021-02-17] MEDS: Rivaroxaban 15 MG TAB PO SCH ×2 (08:48→21:55)
[2021-02-17] MEDS: Docusate 100 MG CAP PO SCH ×2 (08:48→21:57)
[2021-02-17] MEDS: Dexamethasone 4 MG TAB PO SCH (08:49)
[2021-02-17] MEDS: Polyethylene Glycol 3350 17 GM Packet PO SCH (08:54)
[2021-02-17] MEDS: hydrOXYzine 25 MG TAB PO SCH (21:55)
[2021-02-18] MEDS: Acyclovir 800 mg Tablet PO SCH ×5 (00:48→19:53)
[2021-02-18] MEDS: Acetaminophen 325 MG TAB PO PRN (03:58)
[2021-02-18] MEDS: HYDROcodone/Acetaminophen 10/325 mg Tablet PO SCH ×3 (08:37→22:05)
[2021-02-18] MEDS: Rivaroxaban 15 MG TAB PO SCH ×2 (08:38→19:53)
[2021-02-18] MEDS: Docusate 100 MG CAP PO SCH ×2 (08:38→20:12)
[2021-02-18] MEDS: Polyethylene Glycol 3350 17 GM Packet PO SCH (08:39)
[2021-02-18] MEDS: Dexamethasone 4 MG TAB PO SCH (08:46)
[2021-02-18] MEDS: ALPRAZolam 0.5 MG TAB PO PRN (13:55)
[2021-02-18] MEDS: hydrOXYzine 25 MG TAB PO SCH (19:53)
[2021-02-19] MEDS: Acyclovir 800 mg Tablet PO SCH ×5 (00:35→21:23)
[2021-02-19] MEDS: Acetaminophen 325 MG TAB PO PRN (04:58)
[2021-02-19] MEDS: ALPRAZolam 0.5 MG TAB PO PRN ×2 (05:09→15:00)
[2021-02-19 07:08] LABS: #Eosinphils 0.1 thou/uL (0.0-0.7); #Lymphocytes 0.8 thou/uL (1.20-3.40); #Monocytes 0.7 thou/uL (0.11-0.59); #Neutrophils 7.5 thou/uL (1.40-6.50); %Basophils 0.1 % (0.0-1.0); %Eosinophils 0.8 % (0.0-10.0); %Lymphocytes 8.4 % (21.0-51.0); %Monocytes 7.2 % (0.0-10.0); %Neutrophils 83.6 % (42.0-75.0); Hemoglobin 12.1 g/dL (12.0-16.0); Mean Corpuscular HGB CONC 33.2 g/dL (32.0-36.0); Mean Corpuscular Volume 99.5 fL (78.0-98.0); Mean Platelet Volume 6.8 fL (7.4-10.4); Platelet Count 298 thou/uL (130-400); RBC Distribution Width 15.4 % (11.5-14.5); Red Blood Cell (RBC) Count 3.66 mill/uL (4.20-5.40)
[2021-02-19 07:35] LABS: Anion Gap 11 mmol/L (10-20); BUN (Urea Nitrogen) 17 mg/dL (9.8-20.1); Calc. Creatinine Clearance 131 mL/min (70-130); Calcium 8.6 mg/dL (7.8-10.44); Carbon Dioxide 32 mmol/L (23-31); Chloride 99 mmol/L (98-107); Glucose 110 mg/dL (80-115); Potassium 4.1 mmol/L (3.5-5.1); Sodium 138 mmol/L (136-145)
[2021-02-19] MEDS: HYDROcodone/Acetaminophen 10/325 mg Tablet PO SCH ×3 (08:00→21:22)
[2021-02-19] MEDS: Dexamethasone 4 MG TAB PO SCH (08:01)
[2021-02-19] MEDS: Docusate 100 MG CAP PO SCH ×2 (08:01→21:23)
[2021-02-19] MEDS: Rivaroxaban 15 MG TAB PO SCH ×2 (08:01→21:22)
[2021-02-19] MEDS: Polyethylene Glycol 3350 17 GM Packet PO SCH (08:02)
[2021-02-19] MEDS: Albuterol Sulfate 2.5 mg/3 ml Neb NEB PRN (15:00)
[2021-02-19] MEDS: hydrOXYzine 25 MG TAB PO SCH (21:23)
[2021-02-20] MEDS: Acyclovir 800 mg Tablet PO SCH ×3 (00:16→12:21)
[2021-02-20] MEDS: ALPRAZolam 0.5 MG TAB PO PRN (03:01)
[2021-02-20] MEDS: Acetaminophen 325 MG TAB PO PRN ×2 (03:02→06:22)
[2021-02-20] MEDS: Albuterol Sulfate 2.5 mg/3 ml Neb NEB PRN (03:20)
[2021-02-20 06:45] LABS: Anion Gap 13 mmol/L (10-20); BUN (Urea Nitrogen) 19 mg/dL (9.8-20.1); Calc. Creatinine Clearance 110 mL/min (70-130); Calcium 8.9 mg/dL (7.8-10.44); Carbon Dioxide 31 mmol/L (23-31); Chloride 99 mmol/L (98-107); Glucose 122 mg/dL (80-115); Potassium 4.3 mmol/L (3.5-5.1); Sodium 139 mmol/L (136-145)
[2021-02-20 07:13] LABS: #Eosinphils 0.1 thou/uL (0.0-0.7); #Monocytes 0.8 thou/uL (0.11-0.59); #Neutrophils 7.6 thou/uL (1.40-6.50); %Basophils 0.1 % (0.0-1.0); %Eosinophils 1.4 % (0.0-10.0); %Lymphocytes 10.4 % (21.0-51.0); %Monocytes 8.8 % (0.0-10.0); %Neutrophils 79.3 % (42.0-75.0); Hemoglobin 11.9 g/dL (12.0-16.0); Mean Corpuscular HGB CONC 32.1 g/dL (32.0-36.0); Mean Corpuscular Hemoglobin 31.8 pg (27.0-31.0); Mean Corpuscular Volume 99.1 fL (78.0-98.0); Mean Platelet Volume 6.7 fL (7.4-10.4); Platelet Count 339 thou/uL (130-400); RBC Distribution Width 15.4 % (11.5-14.5); Red Blood Cell (RBC) Count 3.75 mill/uL (4.20-5.40); White Blood Cell (WBC) Count 9.5 thou/uL (4.8-10.8)
[2021-02-20] MEDS: Rivaroxaban 15 MG TAB PO SCH (09:02)
[2021-02-20] MEDS: Polyethylene Glycol 3350 17 GM Packet PO SCH (09:03)
[2021-02-20] MEDS: Docusate 100 MG CAP PO SCH (09:03)
[2021-02-20] MEDS: Dexamethasone 4 MG TAB PO SCH (09:04)
[2021-02-20] MEDS: HYDROcodone/Acetaminophen 10/325 mg Tablet PO SCH (10:26)
[2021-02-20 12:20] VITALS: TEMP 98.2
[2021-02-20 12:58] VITALS: BP 157/91
== END 2021-02-20 17:05 | disposition home or self-care (01) | DRG 175 ==
LOC: MSONC 16:30 → NEURO 02-14 00:18
PROVIDERS: ADMIT Family Medicine; ATTEND Internal Medicine
DX: I26.99 Other pulmonary embolism without acute cor pulmonale (principal); G93.6 Cerebral edema; Z20.822 Contact with and (suspected) exposure to COVID-19; C34.90 Malignant neoplasm of unspecified part of unspecified bronchus or lung; C79.31 Secondary malignant neoplasm of brain; I82.431 Acute embolism and thrombosis of right popliteal vein; C79.51 Secondary malignant neoplasm of bone; I48.91 Unspecified atrial fibrillation; E78.5 Hyperlipidemia, unspecified; I10 Essential (primary) hypertension; M19.90 Unspecified osteoarthritis, unspecified site; Z96.641 Presence of right artificial hip joint; M25.562 Pain in left knee; W17.89XA Other fall from one level to another, initial encounter; F41.9 Anxiety disorder, unspecified; B02.9 Zoster without complications; Z80.42 Family history of malignant neoplasm of prostate; Z87.891 Personal history of nicotine dependence; Z92.3 Personal history of irradiation; Z88.0 Allergy status to penicillin; Z88.8 Allergy status to other drugs, medicaments and biological substances; Z79.51 Long term (current) use of inhaled steroids; Z79.899 Other long term (current) drug therapy
CPT/HCPCS: 36415; 77386; 80048; 85025; 93306; 93970; J7611; J7620; J8540

== ENCOUNTER 2021-02-26 20:04 | Inpatient (IN) | payer OTHER ==
[2021-02-26] MEDS ORDERED: HYDROcodone/Acetaminophen 5/325 mg Tablet PO PRN (23:02)
[2021-02-26] MEDS ORDERED: Ondansetron PF 4 MG/2 ML Vial IVP PRN (23:15)
[2021-02-26] MEDS ORDERED: Ondansetron ODT 4 MG TAB SL PRN (23:15)
[2021-02-26] MEDS ORDERED: Acetaminophen 325 MG TAB PO PRN (23:15)
[2021-02-26 23:51] VITALS: BMI 37.7
[2021-02-27] MEDS ORDERED: Rivaroxaban 15 MG TAB PO SCH ×3 (04:15→21:00)
[2021-02-27] MEDS ORDERED: Docusate 100 MG CAP PO PRN (11:56)
[2021-02-27] MEDS: HYDROcodone/Acetaminophen 10/325 mg Tablet PO SCH ×2 (15:05→20:30)
[2021-02-27] MEDS: Benzonatate 100 MG CAP PO PRN (20:30)
[2021-02-27] MEDS: GUAIFENESIN SF SOLN 200 MG/10 ML UDCUP PO PRN (20:30)
[2021-02-27] MEDS: ALPRAZolam 0.5 MG TAB PO SCH (20:30)
[2021-02-27] MEDS: hydrOXYzine 25 MG TAB PO SCH (20:30)
[2021-02-28] MEDS ORDERED: diphenhydrAMINE 25 MG CAP PO SCH (03:08)
[2021-02-28 07:06] LABS: #Eosinphils 0.1 thou/uL (0.0-0.7); #Lymphocytes 1.1 thou/uL (1.20-3.40); #Monocytes 1.2 thou/uL (0.11-0.59); #Neutrophils 11.5 thou/uL (1.40-6.50); %Basophils 0.1 % (0.0-1.0); %Eosinophils 0.6 % (0.0-10.0); %Lymphocytes 7.7 % (21.0-51.0); %Monocytes 8.7 % (0.0-10.0); %Neutrophils 82.8 % (42.0-75.0); Hemoglobin 11.7 g/dL (12.0-16.0); Mean Corpuscular HGB CONC 32.9 g/dL (32.0-36.0); Mean Corpuscular Hemoglobin 33.4 pg (27.0-31.0); Mean Platelet Volume 6.6 fL (7.4-10.4); Platelet Count 413 thou/uL (130-400); White Blood Cell (WBC) Count 13.8 thou/uL (4.8-10.8)
[2021-02-28] MEDS: HYDROcodone/Acetaminophen 10/325 mg Tablet PO SCH ×3 (07:24→20:19)
[2021-02-28] MEDS: Benzonatate 100 MG CAP PO PRN ×2 (07:25→20:19)
[2021-02-28] MEDS: GUAIFENESIN SF SOLN 200 MG/10 ML UDCUP PO PRN ×2 (07:25→20:19)
[2021-02-28 07:32] LABS: Anion Gap 12 mmol/L (10-20); BUN (Urea Nitrogen) 18 mg/dL (9.8-20.1); Calc. Creatinine Clearance 116 mL/min (70-130); Calcium 8.9 mg/dL (7.8-10.44); Carbon Dioxide 35 mmol/L (23-31); Chloride 95 mmol/L (98-107); Glucose 123 mg/dL (80-115); Sodium 138 mmol/L (136-145)
[2021-02-28] MEDS: ALPRAZolam 0.5 MG TAB PO SCH ×2 (09:08→22:12)
[2021-02-28] MEDS: Furosemide 20 MG TAB PO SCH (09:09)
[2021-02-28] MEDS: Rivaroxaban 15 MG TAB PO SCH ×2 (09:09→16:04)
[2021-02-28] MEDS ORDERED: Albuterol Sulfate 2.5 mg/3 ml Neb NEB SCH (15:00)
[2021-02-28] MEDS: hydrOXYzine 25 MG TAB PO SCH (22:12)
[2021-03-01] MEDS: Acetaminophen 500 MG TAB PO PRN (05:06)
[2021-03-01] MEDS: GUAIFENESIN SF SOLN 200 MG/10 ML UDCUP PO PRN (05:07)
[2021-03-01] MEDS: Benzonatate 100 MG CAP PO PRN (05:07)
[2021-03-01] MEDS: Albuterol Sulfate 2.5 mg/3 ml Neb NEB PRN (08:01)
[2021-03-01] MEDS: ALPRAZolam 0.5 MG TAB PO SCH ×3 (09:28→18:23)
[2021-03-01] MEDS: Rivaroxaban 15 MG TAB PO SCH ×2 (09:28→18:23)
[2021-03-01] MEDS: HYDROcodone/Acetaminophen 10/325 mg Tablet PO SCH ×3 (09:28→21:04)
[2021-03-01 10:17] LABS: #Eosinphils 0.1 thou/uL (0.0-0.7); #Lymphocytes 0.9 thou/uL (1.20-3.40); #Monocytes 1.2 thou/uL (0.11-0.59); #Neutrophils 8.2 thou/uL (1.40-6.50); %Basophils 0.3 % (0.0-1.0); %Eosinophils 1.2 % (0.0-10.0); %Monocytes 11.3 % (0.0-10.0); %Neutrophils 78.1 % (42.0-75.0); Hemoglobin 11.7 g/dL (12.0-16.0); Mean Corpuscular HGB CONC 32.6 g/dL (32.0-36.0); Mean Corpuscular Hemoglobin 33.1 pg (27.0-31.0); Mean Platelet Volume 6.7 fL (7.4-10.4); Platelet Count 382 thou/uL (130-400); RBC Distribution Width 15.9 % (11.5-14.5); Red Blood Cell (RBC) Count 3.53 mill/uL (4.20-5.40); White Blood Cell (WBC) Count 10.5 thou/uL (4.8-10.8)
[2021-03-01 10:28] LABS: Anion Gap 14 mmol/L (10-20); BUN (Urea Nitrogen) 15 mg/dL (9.8-20.1); Calc. Creatinine Clearance 119 mL/min (70-130); Calcium 8.9 mg/dL (7.8-10.44); Carbon Dioxide 34 mmol/L (23-31); Chloride 93 mmol/L (98-107); Glucose 151 mg/dL (80-115); Potassium 3.8 mmol/L (3.5-5.1); Sodium 137 mmol/L (136-145)
[2021-03-01] MEDS: Famotidine 20 MG TAB PO SCH (21:04)
[2021-03-01] MEDS: hydrOXYzine 25 MG TAB PO SCH (22:53)
[2021-03-02] MEDS: GUAIFENESIN SF SOLN 200 MG/10 ML UDCUP PO PRN ×3 (01:52→20:09)
[2021-03-02] MEDS: Acetaminophen 500 MG TAB PO PRN ×3 (01:52→18:30)
[2021-03-02] MEDS: Benzonatate 100 MG CAP PO PRN (04:45)
[2021-03-02 06:40] LABS: #Eosinphils 0.1 thou/uL (0.0-0.7); #Lymphocytes 0.8 thou/uL (1.20-3.40); #Monocytes 0.9 thou/uL (0.11-0.59); #Neutrophils 6.7 thou/uL (1.40-6.50); %Basophils 0.1 % (0.0-1.0); %Eosinophils 1.1 % (0.0-10.0); %Lymphocytes 9.3 % (21.0-51.0); %Neutrophils 78.5 % (42.0-75.0); Hemoglobin 11.5 g/dL (12.0-16.0); Mean Corpuscular HGB CONC 32.7 g/dL (32.0-36.0); Mean Corpuscular Hemoglobin 33.3 pg (27.0-31.0); Mean Platelet Volume 6.5 fL (7.4-10.4); Platelet Count 361 thou/uL (130-400); RBC Distribution Width 15.9 % (11.5-14.5); Red Blood Cell (RBC) Count 3.44 mill/uL (4.20-5.40); White Blood Cell (WBC) Count 8.5 thou/uL (4.8-10.8)
[2021-03-02 07:03] LABS: Anion Gap 14 mmol/L (10-20); BUN (Urea Nitrogen) 13 mg/dL (9.8-20.1); Calc. Creatinine Clearance 135 mL/min (70-130); Carbon Dioxide 34 mmol/L (23-31); Chloride 94 mmol/L (98-107); Glucose 124 mg/dL (80-115); Potassium 3.9 mmol/L (3.5-5.1); Sodium 138 mmol/L (136-145)
[2021-03-02] MEDS: Famotidine 20 MG TAB PO SCH ×2 (09:13→20:09)
[2021-03-02] MEDS: Rivaroxaban 15 MG TAB PO SCH ×2 (09:13→18:24)
[2021-03-02] MEDS: HYDROcodone/Acetaminophen 10/325 mg Tablet PO SCH ×4 (09:13→20:09)
[2021-03-02] MEDS: Furosemide 20 MG TAB PO SCH (09:13)
[2021-03-02] MEDS: Albuterol Sulfate 2.5 mg/3 ml Neb NEB PRN ×3 (10:32→23:31)
[2021-03-02] MEDS: ALPRAZolam 0.5 MG TAB PO SCH ×2 (13:36→18:24)
[2021-03-02] MEDS: hydrOXYzine 25 MG TAB PO SCH (20:09)
[2021-03-03] MEDS: Benzonatate 100 MG CAP PO PRN ×2 (01:33→18:57)
[2021-03-03] MEDS: Acetaminophen 500 MG TAB PO PRN ×2 (01:33→07:01)
[2021-03-03] MEDS: Albuterol Sulfate 2.5 mg/3 ml Neb NEB PRN ×3 (07:15→18:58)
[2021-03-03] MEDS: HYDROcodone/Acetaminophen 10/325 mg Tablet PO SCH ×3 (09:11→21:20)
[2021-03-03] MEDS: Famotidine 20 MG TAB PO SCH ×2 (09:12→21:20)
[2021-03-03] MEDS: Rivaroxaban 15 MG TAB PO SCH ×2 (09:12→17:38)
[2021-03-03] MEDS: ALPRAZolam 0.5 MG TAB PO SCH ×2 (13:00→18:54)
[2021-03-03] MEDS: GUAIFENESIN SF SOLN 200 MG/10 ML UDCUP PO PRN ×2 (15:46→21:20)
[2021-03-03] MEDS: hydrOXYzine 25 MG TAB PO SCH (21:20)
[2021-03-04] MEDS: Acetaminophen 500 MG TAB PO PRN (01:13)
[2021-03-04] MEDS: Benzonatate 100 MG CAP PO PRN (01:13)
[2021-03-04] MEDS ORDERED: ALPRAZolam 0.5 MG TAB PO SCH (05:30)
[2021-03-04] MEDS: GUAIFENESIN SF SOLN 200 MG/10 ML UDCUP PO PRN (06:07)
[2021-03-04] MEDS: HYDROcodone/Acetaminophen 10/325 mg Tablet PO SCH ×3 (09:21→21:01)
[2021-03-04] MEDS: Furosemide 20 MG TAB PO SCH (09:22)
[2021-03-04] MEDS: Rivaroxaban 15 MG TAB PO SCH ×2 (09:22→17:20)
[2021-03-04] MEDS: Famotidine 20 MG TAB PO SCH ×2 (09:22→21:01)
[2021-03-04] MEDS: ALPRAZolam 0.5 MG TAB PO SCH ×2 (12:11→17:19)
[2021-03-04] MEDS: Albuterol Sulfate 2.5 mg/3 ml Neb NEB PRN ×2 (13:59→23:44)
[2021-03-04] MEDS: hydrOXYzine 25 MG TAB PO SCH (21:07)
[2021-03-05] MEDS: Acetaminophen 500 MG TAB PO PRN (00:51)
[2021-03-05] MEDS: HYDROcodone/Acetaminophen 10/325 mg Tablet PO SCH ×3 (08:25→20:31)
[2021-03-05] MEDS: Famotidine 20 MG TAB PO SCH ×2 (08:25→20:32)
[2021-03-05] MEDS: Rivaroxaban 15 MG TAB PO SCH ×2 (08:26→16:12)
[2021-03-05] MEDS: GUAIFENESIN SF SOLN 200 MG/10 ML UDCUP PO PRN (13:04)
[2021-03-05] MEDS: Albuterol Sulfate 2.5 mg/3 ml Neb NEB PRN (14:36)
[2021-03-05] MEDS: ALPRAZolam 0.5 MG TAB PO SCH ×2 (15:23→22:10)
[2021-03-05] MEDS: hydrOXYzine 25 MG TAB PO SCH (20:32)
[2021-03-05] MEDS: Benzonatate 100 MG CAP PO PRN (20:32)
[2021-03-06] MEDS: Acetaminophen 500 MG TAB PO PRN ×2 (00:01→06:20)
[2021-03-06] MEDS: Albuterol Sulfate 2.5 mg/3 ml Neb NEB PRN ×2 (01:00→13:43)
[2021-03-06 07:01] LABS: Anion Gap 13 mmol/L (10-20); BUN (Urea Nitrogen) 11 mg/dL (9.8-20.1); Calc. Creatinine Clearance 129 mL/min (70-130); Calcium 8.8 mg/dL (7.8-10.44); Carbon Dioxide 36 mmol/L (23-31); Chloride 91 mmol/L (98-107); Glucose 112 mg/dL (80-115); Sodium 136 mmol/L (136-145)
[2021-03-06] MEDS: HYDROcodone/Acetaminophen 10/325 mg Tablet PO SCH ×3 (08:44→20:33)
[2021-03-06] MEDS: Rivaroxaban 15 MG TAB PO SCH ×2 (08:45→17:36)
[2021-03-06] MEDS: Furosemide 20 MG TAB PO SCH (08:45)
[2021-03-06] MEDS: Famotidine 20 MG TAB PO SCH ×2 (08:45→20:34)
[2021-03-06] MEDS: ALPRAZolam 0.5 MG TAB PO SCH ×2 (12:48→20:37)
[2021-03-06] MEDS ORDERED: Furosemide 20 MG/2 ML VIAL SLOW IVP SCH (14:15)
[2021-03-06 16:18] LABS: Base Excess 9.6 mEq/L (-2.0 to +3.0); Calcium, Ionized (venous) 1.04 mmol/L (1.16-1.32); Chloride (VBG) 88 mmol/L (98-106); Hemoglobin (Hb) 12.6 g/dL (11.7-16.0); Potassium (VBG) 3.83 mmol/L (3.70-5.30); Sodium 135.5 mmol/L (133-146); pH (venous) 7.38 (7.32-7.43)
[2021-03-06 16:23] LABS: Actual Bicarbonate (HCO3v) 37 mEq/L (22-28)
[2021-03-06] MEDS ORDERED: Ondansetron ODT 4 MG TAB PO PRN (18:08)
[2021-03-06] MEDS ORDERED: Ondansetron PF 4 MG/2 ML Vial IVP PRN (18:08)
[2021-03-06] MEDS: hydrOXYzine 25 MG TAB PO SCH (20:34)
[2021-03-07] MEDS: GUAIFENESIN SF SOLN 200 MG/10 ML UDCUP PO PRN (04:19)
[2021-03-07] MEDS: Acetaminophen 500 MG TAB PO PRN (04:19)
[2021-03-07 08:47] VITALS: BP 123/66; TEMP 97.6
[2021-03-07] MEDS ORDERED: Furosemide 20 MG/2 ML VIAL SLOW IVP SCH (09:00)
[2021-03-07] MEDS: Rivaroxaban 15 MG TAB PO SCH (09:36)
[2021-03-07] MEDS: Famotidine 20 MG TAB PO SCH (09:36)
[2021-03-07] MEDS: HYDROcodone/Acetaminophen 10/325 mg Tablet PO SCH (09:36)
== END 2021-03-07 11:00 | disposition home or self-care (01) | DRG 180 ==
LOC: INTOOBSV 22:57 → 2NO 22:57 → OBSVTOIN 02-28 15:35 → MSONC 03-01 14:18
PROVIDERS: ADMIT Student in an Organized Health Care Education/Training Program; ATTEND Family Medicine
DX: C34.90 Malignant neoplasm of unspecified part of unspecified bronchus or lung (principal); J96.21 Acute and chronic respiratory failure with hypoxia; J96.22 Acute and chronic respiratory failure with hypercapnia; I26.93 Single subsegmental thrombotic pulmonary embolism without acute cor pulmonale; C79.31 Secondary malignant neoplasm of brain; I48.92 Unspecified atrial flutter; I82.401 Acute embolism and thrombosis of unspecified deep veins of right lower extremity; Z51.5 Encounter for palliative care; Z20.822 Contact with and (suspected) exposure to COVID-19; E66.9 Obesity, unspecified; E78.5 Hyperlipidemia, unspecified; F41.9 Anxiety disorder, unspecified; Z96.641 Presence of right artificial hip joint; Z79.01 Long term (current) use of anticoagulants; Z88.0 Allergy status to penicillin; Z88.8 Allergy status to other drugs, medicaments and biological substances; Z79.899 Other long term (current) drug therapy; Z79.51 Long term (current) use of inhaled steroids; Z98.890 Other specified postprocedural states; Z87.891 Personal history of nicotine dependence; Z68.37 Body mass index [BMI] 37.0-37.9, adult
CPT/HCPCS: 36415; 71045; 80048; 82805; 83880; 85025; 94640; J1642; J1940; J2405; J7611; J8540